=== PATIENT | female | born 1970 | race Native Hawaiian/Other Pacific Islander ===

== ENCOUNTER 2017-10-21 10:54 | Emergency (ER) | payer MEDICAID ==
[2017-10-21 10:59] VITALS: BMI 21.9
[2017-10-21 11:01] VITALS: BP 121/79; PULSE 84; RESP 20; TEMP 97.9; O2SAT 99
--- NOTE | 2017-10-21 11:32 | ED PDOC ---
HPI: CCC, URI, Sore Throat Time Seen by Provider: 10/21/17 10:57 Chief Complaint (Nursing): ENT Problem Chief Complaint (Provider): Sore Throat, Cough, Rhinnorhea History Per: Patient History/Exam Limitations: no limitations Have you had recent travel within the past 21 days to any of the following countries: [place], [place], [place] or [place]?: No Onset/Duration Of Symptoms: Days (x2) Current Symptoms Are (Timing): Still Present Location Of Pain: None Sick Contacts (Context): None Associated Symptoms: Fever, Sore Throat Ear Symptoms: Bilateral: None Additional Complaint(s): 47 year old female presents to the emergency department for evaluation of sore throat associated with cough and rhinnorhea x2 days. Otherwise (-) SOB, (-) chest pain, (-) N/V/D, (-) abdominal pain, (-) flank pain, (-) urinary symptoms , (-) recent travel, (-) sick contacts. Past Medical History Reviewed: Historical Data, Nursing Documentation, Vital Signs Vital Signs: Last Vital Signs Temp 97.9 F 10/21/17 10:59 Pulse 84 10/21/17 10:59 Resp 20 10/21/17 10:59 BP 121/79 10/21/17 10:59 Pulse Ox 99 10/21/17 11:40 - Medical History PMH: No Chronic Diseases - Surgical History Surgical History: No Surg Hx - Family History Family History: States: Unknown Family Hx - Social History Current smoker - smoking cessation education provided: No Ex-Smoker (has not smoked in the last 12 months): No Alcohol: Social Drugs: Denies - Allergies Allergies/Adverse Reactions: Allergies Allergy/AdvReac Type Severity Reaction Status Date / Time codeine Allergy NAUSEA Verified 10/21/17 11:09 Review of Systems ROS Statement: Except As Marked, All Systems Reviewed And Found Negative Constitutional: Positive for: Fever ENT: Positive for: Throat Pain Respiratory: Positive for: Cough Physical Exam - Reviewed Nursing Documentation Reviewed: Yes Vital Signs Reviewed: Yes - Physical Exam Appears: Positive for: Non-toxic, No Acute Distress Head Exam: Positive for: ATRAUMATIC, NORMAL INSPECTION, NORMOCEPHALIC Skin: Positive for: Normal Color, Warm, Dry. Negative for: Rash Eye Exam: Positive for: Normal appearance, EOMI, PERRL. Negative for: Nystagmus ENT: Positive for: Pharynx Is (mildly erythematous). Negative for: Nasal Congestion, Tonsillar Exudate, Tonsillar Swelling Neck: Positive for: Normal, Painless ROM, Supple Cardiovascular/Chest: Positive for: Regular Rate, Rhythm, Chest Non Tender. Negative for: Tachycardia Respiratory: Positive for: Normal Breath Sounds. Negative for: Rales, Rhonchi, Wheezing, Respiratory Distress Gastrointestinal/Abdominal: Positive for: Normal Exam, Bowel Sounds, Soft. Negative for: Tenderness, Mass, Guarding, Rebound Back: Positive for: Normal Inspection. Negative for: L CVA Tenderness, R CVA Tenderness Extremity: Positive for: Normal ROM. Negative for: Tenderness, Deformity, Swelling Neurologic/Psych: Positive for: Alert, Oriented, Gait - ECG O2 Sat by Pulse Oximetry: 99 (RA) Pulse Ox Interpretation: Normal Medical Decision Making Medical Decision Making: Plan : - Rapid strep Patient is refusing to wait for results of test performed, however she wants the test done. She is choosing to leave [place] pending rapid strep test results. Patient refuses further care, evaluation or treatment in the ER. Patient informed of the reasons for the following and planned treatment, which patient understands, however still refuses. Patient informed of the risk and benefits of treatment. Informed that the risk could include worsening of current conditions, undiagnosed conditions, disability or even . Patient understands the following risk and the benefits of treatment. Patient has the capacity to make decisions and still refuses treatment by RN, PA and ER MD. Patient encouraged to return to the ER at any time and to follow up with pmd. Disposition - Clinical Impression Clinical Impression: Pharyngitis - Patient ED Disposition Is Patient to be Admitted: No Counseled Patient/Family Regarding: Studies Performed, Diagnosis, Need For Followup - Disposition Referrals: Nish Escalante MD [Primary Care Provider] - Disposition: Against Medical Advice Disposition Time: 11:30 Condition: STABLE Additional Instructions: Thank you for letting us take care of you today. You were treated for pharyngitis. You are choosing to leave against medical advice. The emergency medical care you received today was directed at your acute symptoms. Salt water gargles, over the counter motrin/tylenol for pain It may take several days for your symptoms to resolve. Return to the Emergency Department if your symptoms worsen, do not improve, or if you have any other problems. Please contact your doctor in 2 days for re-evaluation and follow up Bring any paperwork you were given at discharge with you along with any medications you are taking to your follow up visit. Our treatment cannot replace ongoing medical care by a primary care provider (PCP) outside of the emergency department. Thank you for allowing the [facility] team to be part of your care today. 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
== END 2017-10-21 12:07 | disposition left against medical advice (07) ==
LOC: SUPCPDRO 10:54 → H.ER 10:54
DX: J02.9 Acute pharyngitis, unspecified (principal); R50.9 Fever, unspecified